=== PATIENT | male | born 1985 | race Caucasian/White ===

== ENCOUNTER 2017-01-22 20:34 | Emergency (ER) | payer SELFPAY ==
--- NOTE | 2017-01-22 22:12 | UC ---
General HPI - HPI Summary HPI Summary: The patient comes in today for: 1. Fever, malaise, body aches, ear ache, headache, sore throat: Onset: Fever, malaise, body ache, headache--today. Ear ache and sore throat was a couple weeks ago. Palliative/provocative: Nothing makes it better or worse. Quality: Ache. Region/radiation: Head, ear, throat. Severity: 07/31 Time: Constant. Associated symptoms: Rhinitis: None. Vomiting: None. Diarrhea: None. Cough: productive, but he has green sputum--going on for 1-2 weeks Chest pain: None. Dyspnea: present. Wheezing: None. He later states that he produces purulent nasal discharge and coughs up the same. * - History of Current Complaint Chief Complaint: UCGeneralIllness Stated Complaint: FLU COMPLAINT Time Seen by Provider: 01/22/17 21:51 Hx Obtained From: Patient - Allergy/Home Medications Allergies/Adverse Reactions: Allergies Allergy/AdvReac Type Severity Reaction Status Date / Time No Known Allergies Allergy Verified 01/22/17 22:02 Home Medications: Home Medications Ibuprofen [Motrin Ib] 600 mg PO BID PRN 01/22/17 [History Confirmed 01/22/17] Mometasone NASAL (NF) [Nasonex (NF)] 1 spray INTRANASAL BID 01/22/17 [History Confirmed 01/22/17] Pseudoephedrine-Guaifenesin [Mucinex D 60-600 mg] 1 tab PO BID 01/22/17 [ History Confirmed 01/22/17] PMH/Surg Hx/FS Hx/Imm Hx Previously Healthy: Yes - He states that he does not focus well. Endocrine History Of: Denies: Diabetes, Thyroid Disease, Hyperthyroidism, Hypothyroidism, Dyslipidemia Cardiovascular History Of: Denies: Cardiac Disorders, Hypertension, Pacemaker/ICD, Myocardial Infarction , Congestive Heart Failure, Atrial Fibrillation, Deep Vein Thrombosis, Bleeding Disorders Respiratory History Of: Denies: COPD, Asthma, Bronchitis, Pneumonia, Pulmonary Embolism GI/ History Of: Denies: Gastroesophageal Reflux, Ulcer, Gastrointestinal Bleed, Gall Bladder Disease, Kidney Stones, Diverticulitis, Renal Disease, Urosepsis Neurological History Of: Denies: TIA, CVA, Dementia, Seizures, Migraine Psychological History Of: Denies: Anxiety, Depression, Bipolar Disorder, Schizophrenia, Post Traumatic Stress Disorder Cancer History Of: Denies: Lung Cancer, Colorectal Cancer, Breast Cancer, Prostate Cancer, Cervical Cancer Other History Of: Negative For: HIV, Hepatitis B, Hepatitis C, Anticoagulant Therapy - Family History Known Family History: Positive: Diabetes Negative: Cardiac Disease - Social History Occupation: Employed Full-time Lives: With Family Alcohol Use: Rare Substance Use Type: Marijuana Smoking Status (MU): Current Every Day Smoker Amount Used/How Often: 1ppd Review of Systems Constitutional: Fever - 101.6 at home. Skin: Negative Eyes: Negative ENT: Sore Throat, Ear Ache Respiratory: Cough Cardiovascular: Negative Gastrointestinal: Negative Genitourinary: Negative All Other Systems Reviewed And Are Negative: Yes Physical Exam Triage Information Reviewed: Yes Appearance: Well-Appearing, No Pain Distress, Well-Nourished Vital Signs: Pulse: 116. Eyes: Positive: Conjunctiva Clear. Negative: Discharge ENT: Positive: Hearing grossly normal, Pharyngeal erythema. Negative: Nasal congestion, Nasal drainage, TM bulging, TM dull, TM red, Tonsillar swelling, Tonsillar exudate Dental: Negative: Gross Decay/Caries @, Dental Fracture @ Neck: Positive: Supple, Nontender, No Lymphadenopathy. Negative: Nuchal Rigidity Respiratory: Positive: Lungs clear, No respiratory distress, No accessory muscle use. Negative: Crackles, Wheezing Cardiovascular: Positive: RRR, No Murmur Abdomen Description: Positive: Nontender, No Organomegaly, Soft. Negative: Distended, Guarding, Peritoneal Signs Musculoskeletal: Positive: Strength Intact, ROM Intact, No Edema Neurological: Positive: Alert, Muscle Tone Normal Psychological: Positive: Age Appropriate Behavior, Consolable Skin: Negative: rashes, breakdown Diagnostics - Laboratory Diagnostic Studies Completed/Ordered: Strep test: (-) Course/Dx - Course Course Of Treatment: Patient was told of the negative strep test. His treatment options were explained. - Differential Dx - Multi-Symptom Provider Diagnoses: viral syndrome. Sinusitis. Bronchitis Discharge - Discharge Plan Condition: Stable Disposition: HOME Patient Education Materials: Sinusitis (ED), Acute Bronchitis (ED), Viral Syndrome (ED) Referrals: [facility] [place] [facility] [Outside] No Primary Care Phys,NOPCP [Primary Care Provider] - 1 Week (Please see your primary care provider in a week to see how well you are doing. If you don't have a primary care provider, please call the physician referral phone line to help you get one. If you can't get in timely, you can see us until you do. If you get worse, please go to the local ER.)
[2017-01-22] MEDS ORDERED: Ketorolac INJ* 60 MG/2 ML VIAL IM ONE (22:22)
[2017-01-22] MEDS ORDERED: Acetaminophen TAB* 325 MG PO ONE (22:38)
[2017-01-22] MEDS ORDERED: diPHENhydraMINE PO* 25 MG PO ONE (22:38)
[2017-01-22] MEDS ORDERED: Amoxicillin/Clavulanate TAB* 875 MG PO ONE (22:59)
== END 2017-01-22 23:15 | disposition home or self-care (01) ==
LOC: UCEAST 20:34
DX: B34.9 Viral infection, unspecified (principal); J32.9 Chronic sinusitis, unspecified; J40 Bronchitis, not specified as acute or chronic; F17.210 Nicotine dependence, cigarettes, uncomplicated
CPT/HCPCS: 87651; 96372; 99202; A9270-GY; G0463; J1885

== ENCOUNTER 2017-09-10 21:49 | Emergency (ER) | payer SELFPAY ==
[2017-09-10 21:54] VITALS: BP 155/84
[2017-09-10] MEDS ORDERED: Penicillin VK TAB* 250 MG PO ONE (22:02)
[2017-09-10] MEDS ORDERED: Acetaminophen TAB* 325 MG PO ONE (22:02)
--- NOTE | 2017-09-10 22:08 | UC ---
Johann Flynn Nikita, scribed for Judith Cortes MD on 09/10/17 at 2203 . Dental HPI - HPI Summary HPI Summary: This patient is a 32 year old M presenting to [facility] with a chief complaint of upper R tooth pain since 2 days ago. The CC is described as constant and radiating to the R jaw and cheek. The patient rates the pain 10/10 in severity. Symptoms aggravated by nothing (pt has used Orajel to no relief). Symptoms alleviated by nothing. Patient reports the tooth is fractured. Patient denies fever, chills, and difficulty swallowing or breathing. Patients medication reviewed this visit. - History of Current Complaint Chief Complaint: UCDentalProblem Stated Complaint: tooth ache Time Seen by Provider: 09/10/17 21:56 Hx Obtained From: Patient Onset/Duration: Sudden Onset, Lasting Days Severity: Severe Pain Intensity: 10 Pain Scale Used: 0-10 Numeric Aggravating Factor(s): Nothing Alleviating Factor(s): Nothing - used Orajel to no relief - Allergies/Home Medications Allergies/Adverse Reactions: Allergies Allergy/AdvReac Type Severity Reaction Status Date / Time No Known Allergies Allergy Verified 09/10/17 21:54 PMH/Surg Hx/FS Hx/Imm Hx Previously Healthy: Yes Other History Of: Negative For: HIV, Hepatitis B, Hepatitis C, Anticoagulant Therapy - Surgical History Surgical History: None - Family History Known Family History: Positive: Diabetes Negative: Cardiac Disease - Social History Occupation: Employed Full-time - self employed pal Alcohol Use: Rare Substance Use Type: Marijuana Substance Use Comment - Amount & Last Used: every day Smoking Status (MU): Light Every Day Tobacco Smoker Type: Cigarettes Amount Used/How Often: 1ppd Length of Time of Smoking/Using Tobacco: 17 years Have You Smoked in the Last Year: Yes Household Exposure Type: Cigarettes Review of Systems Constitutional: Other - denies fever, chills ENT: Dental Pain - radiating to R jaw and cheek, Other - denies difficulty swallowing Respiratory: Other - denies difficulty breathing All Other Systems Reviewed And Are Negative: Yes Physical Exam Triage Information Reviewed: Yes Appearance: Well-Appearing, No Pain Distress, Well-Nourished Vital Signs: Initial Vital Signs Temp 98.6 F 09/10/17 21:52 Pulse 79 09/10/17 21:52 Resp 12 09/10/17 21:52 BP 155/84 09/10/17 21:52 Pulse Ox 100 09/10/17 21:52 Vital Signs Reviewed: Yes Eye Exam: Normal Eyes: Positive: Conjunctiva Clear ENT: Positive: Normal ENT inspection, Hearing grossly normal, Pharynx normal, TMs normal Dental: Positive: Other: - Pt with TTP right #2 tooth tenderness along gumline no fluctuance, no drainage, no erythema No TMJ pain Neck exam: Normal Neck: Positive: Supple, Nontender, No Lymphadenopathy Respiratory Exam: Normal Respiratory: Positive: Chest non-tender, Lungs clear, Normal breath sounds, No respiratory distress Dental Complaint Course/Dx - Course Course Of Treatment: Pt with dental pain #2. no drainable abscess appreciated today. Will start abx. salt water rinses. motrin/apap. dental list given - Differential Dx/Diagnosis Provider Diagnoses: dental pain Discharge - Discharge Plan Condition: Stable Disposition: HOME Prescriptions: Penicillin VK 500 MG TAB(NF) [Penicillin VK 500 mg Tab] 500 mg PO TID #30 tab Patient Education Materials: Toothache (ED) Referrals: No Primary Care Phys,NOPCP [Primary Care Provider] - Additional Instructions: - take antibiotics exactly as prescribed until gone - swish and spit with warm salt water 2-3 times a day - Okay to alternate ibuprofen (Advil, Motrin) and tylenol every 3hours for pain. Take with food - Okay to apply orajel to your tooth every 4-6 hours - you have been given a list of dental clinics - some have walk in hours. It is recommended you follow-up this week The documentation as recorded by the Johann paris Nikita accurately reflects the service I personally performed and the decisions made by , Judith Cortes MD.
== END 2017-09-10 22:10 | disposition home or self-care (01) ==
LOC: UCEAST 21:49
DX: K08.89 Other specified disorders of teeth and supporting structures (principal); F12.90 Cannabis use, unspecified, uncomplicated; F17.210 Nicotine dependence, cigarettes, uncomplicated
CPT/HCPCS: 99212; A9270-GY; G0463

== ENCOUNTER 2018-11-12 18:08 | Emergency (ER) | payer OTHER ==
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
[2018-11-12] MEDS ORDERED: Cyclobenzaprine TAB* 10 MG PO ONE (19:29)
[2018-11-12 20:22] VITALS: BP 144/89
== END 2018-11-12 20:21 | disposition home or self-care (01) ==
LOC: ED 18:08
DX: M54.9 Dorsalgia, unspecified (principal); F17.210 Nicotine dependence, cigarettes, uncomplicated; V89.2XXA Person injured in unspecified motor-vehicle accident, traffic, initial encounter; Y92.9 Unspecified place or not applicable
CPT/HCPCS: 72131; 99282; A9270-GY

== ENCOUNTER 2019-03-26 23:00 | Emergency (ER) | payer SELFPAY ==
[2019-03-26 23:07] VITALS: BP 162/91
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
== END 2019-03-27 01:18 | disposition left against medical advice (07) ==
LOC: ED 23:00
DX: F43.20 Adjustment disorder, unspecified (principal); F17.210 Nicotine dependence, cigarettes, uncomplicated
CPT/HCPCS: 99284

== ENCOUNTER 2019-04-19 22:57 | Emergency (ER) | payer SELFPAY ==
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
[2019-04-20 00:21] VITALS: BP 0/0
== END 2019-04-20 00:19 | disposition home or self-care (01) ==
LOC: ED 22:57
DX: F43.20 Adjustment disorder, unspecified (principal); F17.210 Nicotine dependence, cigarettes, uncomplicated
CPT/HCPCS: 99282